=== PATIENT | male | born 1935 | race Caucasian/White ===

== ENCOUNTER 2021-07-02 19:32 | Inpatient (IN) | payer MEDICARE ==
[~2021-07-02] VITALS: Ht 172.7 cm; Wt 70.3 kg
[2021-07-02] MEDS ORDERED: LOSA25TA27 PO (20:17)
[2021-07-02] MEDS ORDERED: ASPI-1498 PO (20:18)
[2021-07-02] MEDS ORDERED: CARV6.252 PO (20:18)
[2021-07-02] MEDS ORDERED: LORAZEPAM 0.5 MG TABLET PO PRN (20:30)
[2021-07-02] MEDS ORDERED: ACETAMINOPHEN 325 MG TABLET PO PRN (20:30)
[2021-07-02] MEDS ORDERED: MAG HYDROX/AL HYDROX/SIMETH 30 ML UDC PO PRN (20:30)
[2021-07-02] MEDS ORDERED: MAGNESIUM HYDROXIDE 30 ML UDC PO PRN (20:30)
[2021-07-02 20:49] VITALS: BP 145/74
[2021-07-02] MEDS ORDERED: BLOOD SUGAR DIAGNOSTIC 1 EACH STRIP IN ONE (21:00)
[2021-07-02] MEDS ORDERED: Z GUARD REMEDY 2 OZ OINT TP PRN (21:00)
[2021-07-02 23:30] VITALS: BP 135/78
[2021-07-03 06:17] LABS: BASOPHILS # (AUTO) 0.1 K/uL (0.0-0.2); BASOPHILS % (AUTO) 1.1 % (0.0-2.0); EOSINOPHILS % (AUTO) 2.2 % (0.0-6.0); HEMATOCRIT 42 % (39-51); HEMOGLOBIN 13.7 g/dL (13.5-17.5); LYMPHOCYTES # (AUTO) 1.3 K/uL (0.8-4.8); MEAN CORPUSCULAR HGB CONC 33 g/dl (31.0-36.0); MEAN CORPUSCULAR VOLUME 88 fL (80-96); MONOCYTES # (AUTO) 0.9 K/uL (0.1-1.30); NEUTROPHILS # (AUTO) 5.5 K/uL (1.8-8.9); NEUTROPHILS % (AUTO) 69.7 % (43.0-81.0); PLATELET COUNT (AUTO) 224 K/uL (150-450); RED BLOOD CELL COUNT(AUTO) 4.81 MIL/uL (4.5-6.0); WHITE BLOOD COUNT (AUTO) 7.9 K/uL (4.3-11.0)
[2021-07-03 06:53] LABS: CALCIUM, SERUM 8.8 mg/dL (8.5-10.1); CREATININE 1.2 mg/dL (0.6-1.3); POTASSIUM 4.3 mmol/L (3.5-5.1)
[2021-07-03 08:00] VITALS: BP 124/69
[2021-07-03] MEDS: ASPIRIN EC 81 MG TABLET.DR PO SCH (08:31)
[2021-07-03] MEDS: CARVEDILOL 6.25 MG TABLET PO SCH ×2 (08:31→16:27)
[2021-07-03] MEDS: LOSARTAN POTASSIUM 25 MG TABLET PO SCH ×2 (08:32→16:27)
[2021-07-03 16:00] VITALS: BP 121/65
[2021-07-03 19:48] VITALS: BP_SYST 123; BP_SYST 145; BP_DIAS 82
[2021-07-03] MEDS: clonazePAM 0.5 MG TABLET PO SCH (22:16)
[2021-07-04 08:00] VITALS: BP 107/61
[2021-07-04] MEDS: LOSARTAN POTASSIUM 25 MG TABLET PO SCH ×2 (08:55→17:00)
[2021-07-04] MEDS: CARVEDILOL 6.25 MG TABLET PO SCH ×2 (08:55→17:00)
[2021-07-04] MEDS: ASPIRIN EC 81 MG TABLET.DR PO SCH (08:59)
[2021-07-04] MEDS: clonazePAM 0.5 MG TABLET PO SCH ×2 (09:20→21:48)
[2021-07-04 16:00] VITALS: BP 113/58
[2021-07-04 19:55] VITALS: BP 140/71
[2021-07-05 08:00] VITALS: BP 120/57
[2021-07-05] MEDS: CARVEDILOL 6.25 MG TABLET PO SCH ×2 (08:56→16:51)
[2021-07-05] MEDS: ASPIRIN EC 81 MG TABLET.DR PO SCH (08:56)
[2021-07-05] MEDS: LOSARTAN POTASSIUM 25 MG TABLET PO SCH ×3 (08:57→16:51)
[2021-07-05] MEDS: clonazePAM 0.5 MG TABLET PO SCH ×2 (10:00→21:17)
[2021-07-05 16:00] VITALS: BP 125/65
[2021-07-05 20:05] VITALS: BP 101/52
[2021-07-05] MEDS: TEMAZEPAM 7.5 MG CAPSULE PO PRN (21:50)
[2021-07-06 08:00] VITALS: BP 135/72
[2021-07-06] MEDS: ASPIRIN EC 81 MG TABLET.DR PO SCH (08:16)
[2021-07-06] MEDS: LOSARTAN POTASSIUM 25 MG TABLET PO SCH ×2 (08:17→17:10)
[2021-07-06] MEDS: clonazePAM 0.5 MG TABLET PO SCH ×3 (08:17→17:11)
[2021-07-06] MEDS: CARVEDILOL 6.25 MG TABLET PO SCH ×2 (08:18→17:09)
[2021-07-06 16:00] VITALS: BP 129/61
[2021-07-06 20:00] VITALS: BP 119/62
[2021-07-07 08:00] VITALS: BP 101/75
[2021-07-07] MEDS: clonazePAM 0.5 MG TABLET PO SCH ×3 (08:32→16:13)
[2021-07-07] MEDS: LOSARTAN POTASSIUM 25 MG TABLET PO SCH ×2 (08:33→16:12)
[2021-07-07] MEDS: CARVEDILOL 6.25 MG TABLET PO SCH ×2 (08:34→16:12)
[2021-07-07] MEDS: ASPIRIN EC 81 MG TABLET.DR PO SCH (08:43)
[2021-07-07 16:00] VITALS: BP 108/52
[2021-07-07 20:00] VITALS: BP 151/61
[2021-07-08 08:00] VITALS: BP_SYST 132; BP_DIAS 53; BP_DIAS 63
[2021-07-08] MEDS: clonazePAM 0.5 MG TABLET PO SCH ×4 (08:42→21:58)
[2021-07-08] MEDS: CARVEDILOL 6.25 MG TABLET PO SCH ×2 (08:42→16:28)
[2021-07-08] MEDS: ASPIRIN EC 81 MG TABLET.DR PO SCH (08:42)
[2021-07-08] MEDS: LOSARTAN POTASSIUM 25 MG TABLET PO SCH ×2 (08:43→16:31)
[2021-07-08 16:00] VITALS: BP 151/73
[2021-07-08 20:00] VITALS: BP 106/60
[2021-07-08 22:30] VITALS: BP 106/60
[2021-07-09] MEDS: TEMAZEPAM 7.5 MG CAPSULE PO PRN (02:41)
[2021-07-09 08:00] VITALS: BP 153/66
[2021-07-09] MEDS: CARVEDILOL 6.25 MG TABLET PO SCH ×2 (09:51→17:32)
[2021-07-09] MEDS: ASPIRIN EC 81 MG TABLET.DR PO SCH (09:51)
[2021-07-09] MEDS: clonazePAM 0.5 MG TABLET PO SCH ×2 (09:51→21:19)
[2021-07-09] MEDS: LOSARTAN POTASSIUM 25 MG TABLET PO SCH ×2 (09:52→17:32)
[2021-07-09 16:00] VITALS: BP 116/88
[2021-07-09 19:43] VITALS: BP 115/52
[2021-07-09 19:52] VITALS: BP 115/52
[2021-07-09] MEDS: CEPHALEXIN MONOHYDRATE 500 MG CAPSULE PO SCH (20:12)
[2021-07-10 08:00] VITALS: BP 142/62
[2021-07-10] MEDS: clonazePAM 0.5 MG TABLET PO SCH ×2 (08:50→21:39)
[2021-07-10] MEDS: LOSARTAN POTASSIUM 25 MG TABLET PO SCH ×2 (08:51→16:39)
[2021-07-10] MEDS: ASPIRIN EC 81 MG TABLET.DR PO SCH (08:51)
[2021-07-10] MEDS: CEPHALEXIN MONOHYDRATE 500 MG CAPSULE PO SCH ×2 (08:51→16:39)
[2021-07-10] MEDS: CARVEDILOL 6.25 MG TABLET PO SCH ×2 (08:51→16:39)
[2021-07-10 16:00] VITALS: BP 103/50
[2021-07-10] MEDS ORDERED: CEPHALEXIN MONOHYDRATE 500 MG CAPSULE PO SCH (20:00)
[2021-07-10 20:07] VITALS: BP 136/56
[2021-07-10] MEDS: TEMAZEPAM 7.5 MG CAPSULE PO PRN (21:39)
[2021-07-11 08:00] VITALS: BP 114/56
[2021-07-11] MEDS: CARVEDILOL 6.25 MG TABLET PO SCH ×2 (08:17→17:58)
[2021-07-11] MEDS: LOSARTAN POTASSIUM 25 MG TABLET PO SCH ×2 (08:17→17:59)
[2021-07-11] MEDS: CEPHALEXIN MONOHYDRATE 500 MG CAPSULE PO SCH ×2 (08:20→17:58)
[2021-07-11] MEDS: clonazePAM 0.5 MG TABLET PO SCH ×2 (08:20→21:00)
[2021-07-11] MEDS: ASPIRIN EC 81 MG TABLET.DR PO SCH (08:21)
[2021-07-11 16:00] VITALS: BP 151/66
[2021-07-11 20:56] VITALS: BP 115/54
[2021-07-12 08:00] VITALS: BP 133/56
[2021-07-12] MEDS: LOSARTAN POTASSIUM 25 MG TABLET PO SCH (09:00)
[2021-07-12] MEDS: CARVEDILOL 6.25 MG TABLET PO SCH (09:00)
[2021-07-12] MEDS: CEPHALEXIN MONOHYDRATE 500 MG CAPSULE PO SCH (09:28)
[2021-07-12] MEDS: ASPIRIN EC 81 MG TABLET.DR PO SCH (09:29)
[2021-07-12] MEDS: clonazePAM 0.5 MG TABLET PO SCH (09:35)
[2021-07-12 11:34] LABS: BASOPHILS # (AUTO) 0.1 K/uL (0.0-0.2); BASOPHILS % (AUTO) 0.6 % (0.0-2.0); EOSINOPHILS % (AUTO) 0.5 % (0.0-6.0); HEMATOCRIT 48 % (39-51); HEMOGLOBIN 15.2 g/dL (13.5-17.5); LYMPHOCYTES % (AUTO) 6.9 % (20.0-44.0); MEAN CORPUSCULAR HGB CONC 32 g/dl (31.0-36.0); MEAN CORPUSCULAR VOLUME 90 fL (80-96); MONOCYTES # (AUTO) 1.3 K/uL (0.1-1.30); MONOCYTES % (AUTO) 8.5 % (2.0-12.0); NEUTROPHILS # (AUTO) 12.4 K/uL (1.8-8.9); NEUTROPHILS % (AUTO) 83.5 % (43.0-81.0); PLATELET COUNT (AUTO) 236 K/uL (150-450); RED BLOOD CELL COUNT(AUTO) 5.28 MIL/uL (4.5-6.0); WHITE BLOOD COUNT (AUTO) 14.8 K/uL (4.3-11.0)
[2021-07-12 16:00] VITALS: BP 125/63
[2021-07-12 16:17] LABS: CARBON DIOXIDE 23 mmol/L (21-32); CHLORIDE 107 mmol/L (98-107); CREATININE 2.9 mg/dL (0.6-1.3); GLUCOSE 122 mg/dL (74-106); POTASSIUM 5.1 mmol/L (3.5-5.1); SODIUM SERUM 139 mmol/L (136-145); UREA NITROGEN, BLOOD 68 mg/dL (7-18)
[2021-07-12 16:23] LABS: ALANINE AMINOTRANSFERASE 21 U/L (12-78); ALBUMIN 2.9 g/dL (3.4-5.0); ALKALINE PHOSPHATASE 94 U/L (46-116); ASPARTATE AMINOTRANSFERASE 15 U/L (15-37); BILIRUBIN,TOTAL 0.2 mg/dL (0.2-1.0); MAGNESIUM 2.5 mg/dL (1.8-2.4); PHOSPHORUS 4.2 mg/dL (2.5-4.9); TOTAL PROTEIN, SERUM 6.2 g/dL (6.4-8.2)
[2021-07-12] MEDS ORDERED: CLON0.5T4 PO (17:28)
[2021-07-12] MEDS ORDERED: ALLA266C2 TP (17:28)
[2021-07-12] MEDS ORDERED: MAGN400O6 PO (17:28)
[2021-07-12] MEDS ORDERED: ASPI-1420 PO (17:28)
[2021-07-12] MEDS ORDERED: ACET-868 PO (17:28)
[2021-07-12] MEDS ORDERED: CEPH500C2 PO (17:28)
[2021-07-12] MEDS ORDERED: LORA-259 PO (17:28)
[2021-07-12] MEDS ORDERED: MAG30ORA PO (17:28)
[2021-07-12] MEDS ORDERED: TEMA7.5C12 PO (17:28)
[2021-07-13] MEDS ORDERED: BUPIVACAINE 0.25% 75 MG/30 ML VIAL ONE (15:44)
== END 2021-07-12 17:00 | disposition short-term general hospital (02) | DRG 880 ==
LOC: GPS 19:32
PROVIDERS: ADMIT Psychiatry & Neurology Psychiatry; ATTEND Registered Nurse
DX: F41.9 Anxiety disorder, unspecified (principal); F23 Brief psychotic disorder; D68.59 Other primary thrombophilia; L03.90 Cellulitis, unspecified; E78.5 Hyperlipidemia, unspecified; G31.84 Mild cognitive impairment of uncertain or unknown etiology; I10 Essential (primary) hypertension; I25.10 Atherosclerotic heart disease of native coronary artery without angina pectoris; I48.91 Unspecified atrial fibrillation; Z95.0 Presence of cardiac pacemaker; Z73.6 Limitation of activities due to disability; Z85.46 Personal history of malignant neoplasm of prostate; F32.A Depression, unspecified
CPT/HCPCS: 36415; 80048-TC; 80053-TC; 80061-TC; 82962-TC; 83735-TC; 84100-TC; 85025-TC; 87040-TC; 87081-TC; 97116-TC; 97530-TC; J3490

== ENCOUNTER 2021-07-12 17:17 | Inpatient (IN) | payer MEDICARE ==
[~2021-07-12] VITALS: Ht 170.2 cm; Wt 63.5 kg
[~2021-07-12 17:17] MED LIST: ASPI-1498 PO; CARV6.252 PO; LOSA25TA27 PO
[2021-07-12] MEDS ORDERED: MAGN400O6 PO (17:28)
[2021-07-12] MEDS ORDERED: ACET-868 PO (17:28)
[2021-07-12] MEDS ORDERED: ASPI-1420 PO (17:28)
[2021-07-12] MEDS ORDERED: CEPH500C2 PO (17:28)
[2021-07-12] MEDS ORDERED: MAG30ORA PO (17:28)
[2021-07-12] MEDS ORDERED: ALLA266C2 TP (17:28)
[2021-07-12] MEDS ORDERED: CLON0.5T4 PO (17:28)
[2021-07-12] MEDS ORDERED: TEMA7.5C12 PO (17:28)
[2021-07-12] MEDS ORDERED: LORA-259 PO (17:28)
--- NOTE | 2021-07-12 17:30 | NUR ---
RN NOTE- PT BROUGHT TO UNIT FOR ADMISSION FROM [facility] DX- SEPSIS. VS- BP- 134/74, HR- 74, RR- 20, T-98.0. O2 SATS 98% RA. PT MADE COMFORTABLE. SIDE RAILS UP, BED LOCKED, LYNNE LIGHT IN REACH. WILL COMPLETE ADMISSION TIMELY POSSIBLE. REFER REST TO ONCOMING NOC SHIFT
--- NOTE | 2021-07-12 18:53 | NUR ---
PATENT LEATHER SORTER NOTE- 86 Y/O MALE PT ADMITTED TO [facility] FOR 5150 GD. PT UNABLE TO CARE FOR SELF. CALLING AMBULANCE ANXIETY DEPRESSION.PT ON [facility] BECAME SEPTIC AND WAS TRANSFERRED TO . ON ARRIVAL AND FACE TO FACE ASSESSMENT, PT WITHDRAWN, CONFUSED AND LETHARGIC. PMHX- COGNITIVE IMPAIRMENT, CAD, AFIB, HLD, PSYCHOSIS, HTN AND HX PROSTATE CA. SKIN INTACT, VS STABLE, ORDERS PENDING. BED LOCKED, SIDE RAILS UP, CALL LIGHT IN REACH/ WILL CALL MD TO OBTAIN ORDER AND ENDORSE TO NOC SHIFT FOR COMPLETION.
[2021-07-12 20:00] VITALS: BP 108/54
--- NOTE | 2021-07-12 20:00 | NUR ---
MS RN OPENING NOTES PATIENT LAYING IN BED, ALERT/ORIENTED X 1, PT CONFUSED, ORIENTED PATIENT TO TIME AND PLACE. PATIENT STABLE ON RA, NO S/S OF DISTRESS OR SOB NOTED, BREATHING EVEN AND UNLABORED. PATIENT HAS NO IV ACCESS. SAFETY MEASURES IN PLACE: CALL LIGHT WITHIN REACH, SIDE RAILS UP X 3, BED LOCKED IN LOW POSITION, BED ALARM ON. WILL CONTINUE TO MONITOR PATIENT. MED RECON AND ORDERS PENDING
--- NOTE | 2021-07-12 20:05 | NUR ---
MS RN NOTE PATIENT HAS TEMP OF 99.5 DEGREES. COOLING MEASURES IN PLACE: REMOVED BLANKETS AND PLACED COLD CLOTHS ON BODY. WILL CONTINUE TO MONITOR PATIENT
--- NOTE | 2021-07-12 20:15 | NUR ---
MS RN NOTE SPOKE TO DR. ARROYO REGARDING MED RECON AND PATIENT ORDERS, SAID TO WAIT FOR ADMITTING TO INPUT ORDERS AND DO MED RECON
--- NOTE | 2021-07-12 22:03 | NUR ---
MS RN NOTES REASSESSED PATIENT'S TEMPERATURE NOW 98.4 DEGREES. WILL CONTINUE TO MONITOR
[2021-07-13] MEDS ORDERED: MAGNESIUM HYDROXIDE 30 ML UDC PO PRN ×2 (01:00)
[2021-07-13] MEDS ORDERED: MAG HYDROX/AL HYDROX/SIMETH 30 ML UDC PO PRN ×2 (01:00)
[2021-07-13] MEDS ORDERED: Z GUARD REMEDY 2 OZ OINT TP PRN ×2 (01:00)
[2021-07-13] MEDS ORDERED: ACETAMINOPHEN 325 MG TABLET PO PRN ×2 (01:00)
[2021-07-13] MEDS ORDERED: ONDANSETRON HCL/PF 4 MG/2 ML VIAL IVP PRN (01:00)
[2021-07-13] MEDS ORDERED: TEMAZEPAM 7.5 MG CAPSULE PO PRN (01:00)
[2021-07-13] MEDS: IV NS 0.9% 1,000 ML IV SCH ×3 (01:20→21:42)
[2021-07-13] MEDS ORDERED: MEROPENEM 500 MG VIAL IV ONE (02:15)
[2021-07-13] MEDS ORDERED: VANCOMYCIN 1 GM VIAL ONE (02:15)
[2021-07-13] MEDS ORDERED: VANCOMYCIN 1 GM in IV D5W 250ml IV ONE (02:30)
[2021-07-13] MEDS ORDERED: MEROPENEM 500 MG in IV NS 0.9% 50 ML IV ONE (05:00)
[2021-07-13 07:07] LABS: BASOPHILS # (AUTO) 0.1 K/uL (0.0-0.2); BASOPHILS % (AUTO) 0.9 % (0.0-2.0); EOSINOPHILS % (AUTO) 2.4 % (0.0-6.0); HEMATOCRIT 42 % (39-51); HEMOGLOBIN 13.6 g/dL (13.5-17.5); LYMPHOCYTES # (AUTO) 1.1 K/uL (0.8-4.8); LYMPHOCYTES % (AUTO) 11.1 % (20.0-44.0); MEAN CORPUSCULAR HGB CONC 33 g/dl (31.0-36.0); MEAN CORPUSCULAR VOLUME 87 fL (80-96); MONOCYTES # (AUTO) 1.1 K/uL (0.1-1.30); MONOCYTES % (AUTO) 11.1 % (2.0-12.0); NEUTROPHILS # (AUTO) 7.6 K/uL (1.8-8.9); NEUTROPHILS % (AUTO) 74.5 % (43.0-81.0); PLATELET COUNT (AUTO) 257 K/uL (150-450); RED BLOOD CELL COUNT(AUTO) 4.76 MIL/uL (4.5-6.0); WHITE BLOOD COUNT (AUTO) 10.2 K/uL (4.3-11.0)
[2021-07-13 07:20] LABS: CALCIUM, SERUM 8.3 mg/dL (8.5-10.1); CREATININE 1.1 mg/dL (0.6-1.3); MAGNESIUM 2.6 mg/dL (1.8-2.4); PHOSPHORUS 3.3 mg/dL (2.5-4.9); POTASSIUM 4.1 mmol/L (3.5-5.1)
--- NOTE | 2021-07-13 07:32 | NUR ---
WOUND CARE CONSULT: PT PRESENTS WITH RAISED RED INDURATED AREA TO LEFT UPPER BACK, PRESENT ON ADMISSION. DEFER TO PMD FOR POSSIBLE SURGICAL CONSULT. PT IS ABLE TO TURN AND REPOSITIONING BED AND IS CONTINENT AT THIS TIME. RECOMMENDATIONS MADE FOR SKIN PROTECTION. MD IN AGREEMENT WITH PLAN OF CARE. Addendum: 07/13/21 at 0747 by SULY TRENT WNDNU ABOVE DISCUSSED WITH ALEXIA MATHEW DNP.
--- NOTE | 2021-07-13 07:35 | NUR ---
MS RN CLOSING NOTE PATIENT SLEEPING IN BED, PT APPEARS COMFORTABLE AND NOT IN ANY DISTRESS. NO SIGNIFICANT CHANGES THROUGHOUT SHIFT. PATIENT STABLE ON RA, NO S/S OF DISTRESS OR SOB NOTED, BREATHING EVEN AND UNLABORED. RIGHT WRIST IV ACCESS RUNNING NS @ 100 ML/HR. MEDICATIONS GIVEN ORDERED. PT NEEDS MET THROUGHOUT SHIFT. SAFETY MEASURES IN PLACE: CALL LIGHT WITHIN REACH, SIDE RAILS UP X 3, BED LOCKED IN LOW POSITION, BED ALARM ON. ENDORSED TO DAY SHIFT NURSE FOR CONTINUITY OF CARE
--- NOTE | 2021-07-13 07:46 | NUR ---
MS RN OPENING NOTE Patient in bed asleep, A/O x 1. Stable on room air, no SOB or s/s of distress noted. IV access on right wrist #20G running NS at 100ml/hr. Safety precautions in place: bed in low, locked position, siderails ups x 2, call light within reach. Will continue to monitor.
[2021-07-13 08:00] VITALS: BP 116/44
[2021-07-13] MEDS: ASPIRIN EC 81 MG TABLET.DR PO SCH (08:57)
[2021-07-13] MEDS: CARVEDILOL 6.25 MG TABLET PO SCH ×2 (08:58→21:00)
[2021-07-13] MEDS: LOSARTAN POTASSIUM 25 MG TABLET PO SCH ×2 (08:59→21:00)
[2021-07-13] MEDS: clonazePAM 0.5 MG TABLET PO SCH ×2 (08:59→21:42)
--- NOTE | 2021-07-13 09:31 | NUR ---
RN NOTE RECEIVED ORDER FROM ALEXIA MATHEW TO CHANGE HIS ORDER FROM CT CHEST WITHOUT CONTRAST TO WITH CONTRAST. RECEIVED ORDER AND CARRIED OUT.
[2021-07-13] MEDS ORDERED: IV NS 0.9% 250 ML IV ONE (09:52)
[2021-07-13] MEDS ORDERED: IOHEXOL-300 100 ML VIAL IV ONE (09:52)
--- NOTE | 2021-07-13 11:44 | NUR ---
RN NOTE PATIENT IS FOR INCISION AND DRAINAGE ABSCESS ON LEFT UPPER BACK. UNABLE TO REACH THE FAMILY. CONSENT WAS SIGNED BY DR VALENCIA. PLACED PATIENT ON NPO. Addendum: 07/13/21 at 1147 by EBER ADEN RN PER DR VALENCIA. BLOOD TRANSFUSION CONSENT IS NOT NEEDED.
[2021-07-13] MEDS ORDERED: MEROPENEM 500 MG in IV NS 0.9% 50 ML IV SCH (13:00)
[2021-07-13] MEDS ORDERED: ANESTHESIA TRAY IN PYXIS 1 EA TRAY MC ONE (13:09)
--- NOTE | 2021-07-13 15:30 | NUR ---
Patient was brought to OR via bed.
--- NOTE | 2021-07-13 17:06 | NUR ---
RN NOTE PATIENT WAS TRANSFERRED BACK TO ROOM 313-1. VS BP 135/64 NH 60 RR 18 T 97.[address] VALENCIA ORDERED TO PUT THE PT BACK ON REGULAR DIET. CBC AND BMP IN THE MORNING. TO CHANGE THE DRESSING WITH SALINE AND KERLIX PACKING EVERY 12 HOURS. RECEIVED ORDERS AND CARRIED OUT. Addendum: 07/13/21 at 1830 by EBER ADEN RN CORRECTION: CARDIAC DIET
[2021-07-13] MEDS: MEROPENEM 500 MG in IV NS 0.9% 100 ML IV SCH (17:39)
--- NOTE | 2021-07-13 18:20 | NUR ---
MS RN CLOSING NOTE Patient in bed, resting comfortably. A/O x 1. Stable on room air, no SOB or s/s of distress noted. No complains of pain or discomfort at this time. IV access on right wrist NS running at 100ml/hr, intact and patent. Dressing on left upper back is clean, dry, and intact. Due meds given. Safety precautions maintained: bed in low, locked position; siderails up x 2; call light within reach. Will endorse to car shifter nurse for ANA LUISA.
--- NOTE | 2021-07-13 19:40 | NUR ---
MS RN OPENING NOTES PATIENT SITTING ON SIDE OF BED DRINKING TEA. PT ALERT/ORIENTED X 1, CONFUSED. PATIENT STABLE ON RA, NO S/S OF DISTRESS OR SOB NOTED, BREATHING EVEN AND UNLABORED. RIGHT WRIST IV ACCESS RUNNING NS @ 100 ML/HR. PATIENT DENIES PAIN OR DISCOMFORT AT THIS TIME. DRESSING ON BACK CLEAN, DRY AND INTACT. SAFETY MEASURES IN PLACE: CALL LIGHT WITHIN REACH, SIDE RAILS UP X 3, BED LOCKED IN LOW POSITION, BED ALARM ON. WILL CONTINUE TO MONITOR PATIENT
[2021-07-13 20:00] VITALS: BP 132/67
[2021-07-13] MEDS: VANCOMYCIN 1 GM in IV D5W 250 ML IV SCH (20:41)
[2021-07-14] MEDS: LORAZEPAM 1 MG TABLET PO PRN ×2 (02:41→17:39)
[2021-07-14] MEDS: MEROPENEM 500 MG in IV NS 0.9% 100 ML IV SCH ×2 (05:20→16:19)
[2021-07-14 06:37] LABS: BASOPHILS % (AUTO) 0.1 % (0.0-2.0); HEMATOCRIT 43 % (39-51); HEMOGLOBIN 13.9 g/dL (13.5-17.5); LYMPHOCYTES # (AUTO) 0.6 K/uL (0.8-4.8); LYMPHOCYTES % (AUTO) 6.1 % (20.0-44.0); MEAN CORPUSCULAR HGB CONC 33 g/dl (31.0-36.0); MEAN CORPUSCULAR VOLUME 88 fL (80-96); MONOCYTES # (AUTO) 0.3 K/uL (0.1-1.30); MONOCYTES % (AUTO) 3.3 % (2.0-12.0); NEUTROPHILS # (AUTO) 8.6 K/uL (1.8-8.9); NEUTROPHILS % (AUTO) 90.5 % (43.0-81.0); PLATELET COUNT (AUTO) 247 K/uL (150-450); RED BLOOD CELL COUNT(AUTO) 4.84 MIL/uL (4.5-6.0); WHITE BLOOD COUNT (AUTO) 9.5 K/uL (4.3-11.0)
[2021-07-14 06:49] LABS: CALCIUM, SERUM 8.2 mg/dL (8.5-10.1); CREATININE 1.2 mg/dL (0.6-1.3); POTASSIUM 4.6 mmol/L (3.5-5.1)
--- NOTE | 2021-07-14 07:00 | NUR ---
MS RN CLOSING NOTE PATIENT AWAKE IN BED, ALERT/ORIENTED X 1, VERY CONFUSED DURING SHIFT. PATIENT DID NOT SLEEP ALL NIGHT, TRYING TO GET OUT OF BED AND FIXATED ON CALLING HIS BROTHER, FREQUENTLY REORIENTED PATIENT. PATIENT STABLE ON RA, NO S/S OF DISTRESS OR SOB NOTED, BREATHING EVEN AND UNLABORED. RIGHT WRIST IV ACCESS RUNNING MERREM @ 33.33 ML/HR. MEDICATIONS GIVEN ORDERED. PT NEEDS MET THROUGHOUT SHIFT. WOUND CARE DONE. SAFETY MEASURES IN PLACE: CALL LIGHT WITHIN REACH, SIDE RAILS UP X 3, BED LOCKED IN LOW POSITION, BED ALARM ON. WILL ENDORSE TO DAY SHIFT NURSE FOR CONTINUITY OF CARE
[2021-07-14] MEDS: IV NS 0.9% 1,000 ML IV SCH ×2 (07:07→16:19)
--- NOTE | 2021-07-14 07:47 | NUR ---
MS RN OPENING NOTE Patient in bed, asleep. A/O x 1. On room air, no SOB or s/s of distress noted. IV access on right wrist #20G NS running at 100ml/hr, intact and patent. Dressing on left upper back is clean, dry, and intact. Safety precautions in place: bed in low, locked position; siderails up x 2; call light within reach. Will continue to monitor.
[2021-07-14 08:00] VITALS: BP 120/55
[2021-07-14] MEDS: ASPIRIN EC 81 MG TABLET.DR PO SCH (08:50)
[2021-07-14] MEDS: CARVEDILOL 6.25 MG TABLET PO SCH ×2 (08:51→21:00)
[2021-07-14] MEDS: LOSARTAN POTASSIUM 25 MG TABLET PO SCH ×2 (08:51→21:00)
[2021-07-14] MEDS: clonazePAM 0.5 MG TABLET PO SCH ×2 (08:52→21:00)
--- NOTE | 2021-07-14 09:37 | NUR ---
SW Transfer Note: Patient will be transferred to medical floor due to Sepsis. Dr. Sigala will discontinue the 5250 hold. Patient will return back home located at [address] [place] [address]; ([phone]). Patients brother Carlos ([phone]) is involved in patients care. Brother set up caregiving services through [facility] through [facility] ([phone]). Patient will continue home health services by [facility] (ph: [phone]; fax: [phone]) for medication management, physical therapy, and nursing follow up and family is aware of this.
[2021-07-14] MEDS: VANCOMYCIN 1 GM in IV D5W 250 ML IV SCH (13:33)
[2021-07-14] MEDS ORDERED: VANCOMYCIN 0.75 GM in IV D5W 250 ML IV SCH (14:00)
[2021-07-14 16:00] VITALS: BP 152/76
--- NOTE | 2021-07-14 17:56 | NUR ---
RN NOTE PATIENT WAS CONFUSED, AGITATED, SHOWING UNACCEPTABLE BEHAVIOR SUCH TELLING MALE STAFF TO SHOW THEIR DICKS AND ASKING WOMEN STAFF TO GET OUT OF THE ROOM. PATIENT WAS REFUSING ATIVAN, EXPLAINED RISKS AND BENEFITS OF SUCH YET PT STILL REFUSED. HE REFUSED TO HAVE DRESSING CHANGE WELL. HE EVEN PULLED OUT THE IV CONNECTION. PATIENT WAS TRANSFERRED TO ROOM 327-2 AND WAS GIVEN A SITTER FOR CLOSED MONITORING. CHARGE NURSE ASHLEY SANDERS WAS MADE AWARE.
--- NOTE | 2021-07-14 18:21 | NUR ---
MS RN CLOSING NOTE Patient in bed resting, more calm now. A/O x 1. Stable on room air, no SOB or s/s of distress noted. IV access on left wrist #22G, intact and patent, with NS running at 100ml/hr. With sitter at bedside. Safety precautions maintained: bed in low, locked position; siderails up x 2; call light within reach. Will endorse to director life nurse for ANA LUISA.
--- NOTE | 2021-07-14 19:45 | NUR ---
MS RN NOTES RECEIVED ON BED A/O X 1,CONFUSED,S/P INCISION AND DRAINAGE OF LEFT UPPER BACK ABSCESS.DRESSING INTACT AND DRY.SITTER AT BEDSIDE FOR PATIENT SAFETY.IVF NS AT 100ML/HR RATE,INFUSING ON LEFT WRIST SALINE LOCK VIA IV PUMP.WILL CONTINUE TO MONITOR STATUS.
[2021-07-14 20:00] VITALS: BP 131/66
[2021-07-15] MEDS: IV NS 0.9% 1,000 ML IV SCH ×3 (03:11→22:49)
[2021-07-15] MEDS: MEROPENEM 500 MG in IV NS 0.9% 100 ML IV SCH ×2 (05:15→16:37)
[2021-07-15 07:54] LABS: CREATININE 1.1 mg/dL (0.6-1.3); POTASSIUM 4.4 mmol/L (3.5-5.1)
[2021-07-15 08:00] VITALS: BP 127/68
--- NOTE | 2021-07-15 08:00 | NUR ---
RN OPENING NOTE PT RESTING IN BED ASLEEP. AROUSES TO NAME. A/O X1 AND BOLIVIAN SPEAKING. NO S/S OF PAIN OR NAUSEA. ON RA WITH NO SOB OR RESPIRATORY DISTRESS PRESENT. NO CARDIAC MONITORING. NO EDEMA PRESENT. ON BEDREST WITH DIAPER PRESENT. IV PRESENT ON L WRIST 22G AND FLUSHES WELL. LABS AND ORDERS REVIEWED. SAFETY MEASURES IN PLACE. SIDE RAILS RAISED. BED LOWERED. CALL LIGHT WITHIN REACH. WILL CONTINUE TO MONITOR.
[2021-07-15] MEDS: VANCOMYCIN 1 GM in IV D5W 250 ML IV SCH (08:53)
[2021-07-15] MEDS: CARVEDILOL 6.25 MG TABLET PO SCH ×2 (09:00→21:15)
[2021-07-15] MEDS: LOSARTAN POTASSIUM 25 MG TABLET PO SCH ×2 (09:00→21:15)
[2021-07-15] MEDS: clonazePAM 0.5 MG TABLET PO SCH ×2 (09:12→21:15)
[2021-07-15] MEDS: ASPIRIN EC 81 MG TABLET.DR PO SCH (09:12)
[2021-07-15 16:00] VITALS: BP 127/68
--- NOTE | 2021-07-15 18:21 | NUR ---
RN CLOSING NOTE PT RESTING IN BED ASLEEP. AROUSES TO NAME. A/O X1 AND MAORI SPEAKING. NO S/S OF PAIN OR NAUSEA. ON RA WITH NO SOB OR RESPIRATORY DISTRESS PRESENT. NO CARDIAC MONITORING. NO EDEMA PRESENT. ON BEDREST WITH DIAPER PRESENT. IV PRESENT ON L WRIST 22G AND FLUSHES WELL. LABS AND ORDERS REVIEWED. SAFETY MEASURES IN PLACE. SIDE RAILS RAISED. BED LOWERED. CALL LIGHT WITHIN REACH. WILL GIVE REPORT TO NIGHT NURSE FOR ANA LUISA.
--- NOTE | 2021-07-15 19:36 | NUR ---
MS RN NOTES PT RESTING IN BED ASLEEP. AROUSES TO NAME. A/O X1 AND CHADIAN SPEAKING. NO S/S OF PAIN OR NAUSEA. ON RA WITH NO SOB OR RESPIRATORY DISTRESS PRESENT. NO EDEMA PRESENT. ON BEDREST WITH DIAPER PRESENT. IV PRESENT ON L WRIST 22G AND FLUSHES WELL. SAFETY MEASURES IN PLACE. SIDE RAILS RAISED. BED LOWERED. CALL LIGHT WITHIN REACH. SITTER AT BEDSIDE. WILL CONTINUE TO MONITOR.
[2021-07-15 21:42] VITALS: BP 151/80
[2021-07-16] MEDS: MEROPENEM 500 MG in IV NS 0.9% 100 ML IV SCH ×2 (04:00→16:06)
--- NOTE | 2021-07-16 06:57 | NUR ---
MS RN NOTES PT RESTING IN BED ASLEEP. AROUSES TO NAME. A/O X1 AND [place]THER[place] IRISH SPEAKING. NO S/S OF PAIN OR NAUSEA. ON RA WITH NO SOB OR RESPIRATORY DISTRESS PRESENT. NO EDEMA PRESENT. ON BEDREST WITH DIAPER PRESENT. IV PRESENT ON L WRIST 22G AND FLUSHES WELL. SAFETY MEASURES IN PLACE. SIDE RAILS RAISED. BED LOWERED. CALL LIGHT WITHIN REACH. SITTER AT BEDSIDE. WILL ENDORSE CARE TO DAY SHIFT NURSE.
[2021-07-16 07:16] LABS: CALCIUM, SERUM 8.2 mg/dL (8.5-10.1); CREATININE 1.1 mg/dL (0.6-1.3); POTASSIUM 3.8 mmol/L (3.5-5.1)
[2021-07-16 08:00] VITALS: BP 162/87
[2021-07-16] MEDS: VANCOMYCIN 1 GM in IV D5W 250 ML IV SCH (09:16)
[2021-07-16] MEDS: ASPIRIN EC 81 MG TABLET.DR PO SCH (09:39)
[2021-07-16] MEDS: LOSARTAN POTASSIUM 25 MG TABLET PO SCH ×2 (09:40→21:53)
[2021-07-16] MEDS: CARVEDILOL 6.25 MG TABLET PO SCH ×2 (09:40→21:53)
[2021-07-16] MEDS: clonazePAM 0.5 MG TABLET PO SCH ×2 (09:40→21:54)
[2021-07-16] MEDS: IV NS 0.9% 1,000 ML IV SCH ×2 (11:00→22:09)
--- NOTE | 2021-07-16 14:32 | NUR ---
IV infiltrated on left wrist and IV transferred to right hand with gauge #22. With good blood return and pt. tolerated well.
--- NOTE | 2021-07-16 15:58 | NUR ---
Pt. is irritable and took off the DVT pump, was explained on the importance and refused to put back.
[2021-07-16 16:00] VITALS: BP 158/81
--- NOTE | 2021-07-16 19:31 | NUR ---
MS RN OPENING NOTES: RECEIVED PATIENT SLEEP IN BED COMFORTABLY, BED IN LOW POSITION, CALL LIGHTS WITHIN REACH, NO COMPLAIN OF PAIN AND DISCOMFORT AT THIS TIME, PATIENT IS A/OX1 ON URINAL , ON CARDIAC DIET , WITH IV LINE AT RT HAND #22 WITH NSS@100ML/HR INFUSING WELL, PATIENT KEPT CLEAN AND DRY, ALL NEEDS MET, WILL CONTINUE TO MONITOR.
[2021-07-16 20:00] VITALS: BP 138/72
[2021-07-17] MEDS: MEROPENEM 500 MG in IV NS 0.9% 100 ML IV SCH (05:26)
[2021-07-17] MEDS: IV NS 0.9% 1,000 ML IV SCH ×2 (05:35→14:40)
--- NOTE | 2021-07-17 07:23 | NUR ---
RN CLOSING NOTES: PATIENT AWAKE IN BED, NO COMPLAIN OF PAIN AND DISCOMFORT AT THIS TIME, BED IN LOW POSITION, CALL LIGHTS WITHIN REACH, PATIENT IS A/OX1 CONFUSED, FALL RISK, ON FREQUENT ROUNDS, WITH ONGOING IV FLUID OF NSS AT 100 ML INFUSING WELL AT RAC, PATIENT KEPT CLEAN AND DRY, ALL NEEDS MET, ENDORSE TO INCOMING SHIFT.
--- NOTE | 2021-07-17 07:47 | NUR ---
RN OPENING NOTE RECEIVED PATIENT AWAKE, A/O X 1. NO S/SX OF DISTRESS NOTED. PATIENT ON ROOM AIR, TOLERATING WELL. BREATHING IS EVEN AND UNLABORED; NO SOB NOTED. NO S/SX OF DISTRESS NOTED. IV ACCESS RHAND#22 PATENT AND INTACT WITH NS RUNNING AT 100MLS/HR. SAFETY PRECAUTIONS IN PLACE; BED IN LOW POSITION AND LOCKED, SIDE RAILS UP X2, CALL LIGHT WITHIN REACH. WILL CONTINUE TO MONITOR PATIENT.
[2021-07-17 08:00] VITALS: BP 143/70
[2021-07-17 08:14] LABS: CALCIUM, SERUM 8.2 mg/dL (8.5-10.1); CREATININE 1.2 mg/dL (0.6-1.3); POTASSIUM 3.9 mmol/L (3.5-5.1)
[2021-07-17] MEDS: clonazePAM 0.5 MG TABLET PO SCH ×2 (08:18→20:55)
[2021-07-17] MEDS: ASPIRIN EC 81 MG TABLET.DR PO SCH (08:18)
[2021-07-17] MEDS: CARVEDILOL 6.25 MG TABLET PO SCH ×2 (08:19→20:55)
[2021-07-17] MEDS: LOSARTAN POTASSIUM 25 MG TABLET PO SCH ×2 (08:19→20:55)
[2021-07-17] MEDS: VANCOMYCIN 1 GM in IV D5W 250 ML IV SCH (08:37)
[2021-07-17] MEDS ORDERED: SULFAMETH/TRIMETH 800/160 MG 1 UDTAB TABLET PO SCH (13:00)
[2021-07-17] MEDS: LORAZEPAM 1 MG TABLET PO PRN (15:06)
[2021-07-17] MEDS ORDERED: LORAZEPAM INJ 2 MG/ML VIAL IV PRN (15:30)
[2021-07-17 16:00] VITALS: BP 142/75
--- NOTE | 2021-07-17 16:00 | NUR ---
MS RN NOTE PT CONFUSED, ANXIOUS AND ATTEMPTING TO GET UP FROM BED AND YELLING "HELP, HELP." PT REFUSED PO ATIVAN 0.5MG. INFORMED DR. ALEXIA MATHEW AND CHARGE NURSEHERBIE WITH NEW ORDER FOR ATIVAN 0.5MG IV Q6H PRN ANXIETY. ORDERS READ BACK AND CARRIED OUT.
--- NOTE | 2021-07-17 18:51 | NUR ---
RN CLOSING NOTE PATIENT AWAKE, A/O X 1. NO S/SX OF DISTRESS NOTED. PATIENT ON ROOM AIR, TOLERATING WELL. BREATHING IS EVEN AND UNLABORED; NO SOB NOTED. IV ACCESS RHAND#22 PATENT AND INTACT WITH NS RUNNING AT 100MLS/HR. ALL NEEDS MET THROUGHOUT SHIFT. SAFETY PRECAUTIONS MAINTAINED. CALL LIGHT IS WITHIN REACH. WILL ENDORSE CONTINUITY OF CARE TO ONCOMING SHIFT.
--- NOTE | 2021-07-17 19:36 | NUR ---
MS RN OPENING NOTES: RECEIVED PATIENT SLEEP IN BED COMFORTABLY, BED IN LOW POSITION, CALL LIGHTS WITHIN REACH, NO COMPLAIN OF PAIN AND DISCOMFORT AT TIS TIME, PATIENT , PATIENT IS A/O X1 WITH EPISODE OF CONFUSION, WITH IV LINE AT R HAND #22 WITH ONGOING NSS@100ML PER HOUR INFUSING WELL, PATIENT WAS MONITORED DUE TO FALL RISK, KEPT CLEAN AND DRY, ALL NEED MET, WILL CONTINUE TO MONITOR.
[2021-07-17 20:00] VITALS: BP 159/92
[2021-07-17] MEDS ORDERED: MEROPENEM 500 MG in IV NS 0.9% 50 ML IV ONE (20:00)
[2021-07-17] MEDS ORDERED: MEROPENEM 500 MG VIAL IV ONE (20:36)
--- NOTE | 2021-07-17 20:45 | NUR ---
RN NOTES: MERREM 500MG IN 50ML NSS ONE TIME GIVEN , MEDICATION C/O CN
--- NOTE | 2021-07-18 01:00 | NUR ---
RN NOTES: PSYCH DOCTOR HARSH CAME AND EVALUATED THE PATIENT.
[2021-07-18] MEDS: IV NS 0.9% 1,000 ML IV SCH ×2 (03:58→11:13)
--- NOTE | 2021-07-18 06:53 | NUR ---
RN CLOSING NOTES PATIENT SLEEP IN BED COMFORTABLY, BED IN LOW POSITION, CALL LIGHTS WITHIN REACH, NO COMPLAIN OF PAIN AND DISCOMFORT AT THIS TIME, PATIENT IS A/OX1 AMBULATORY ABLE TO WALK WITH CANE AND WITH SUPERVISION, WITH ONGOING IV INFUSION OF 0.9 NSS @100M/HR INFUSING WELL, IV LINE AT RFA #22 , PATIENT ON RA SATURATING WELL, PATIENT KEPT CLEAN AND DRY, REMIND PATIENT TO USE THE CALL LIGHTS WHEN NEEDED ASSISTANCE, ENDORSE TO INCOMING SHIFT.
--- NOTE | 2021-07-18 07:21 | NUR ---
MS RN OPENING NOTE PATIENT IN BED, ASLEEP. A/O X 1. STABLE ON ROOM AIR, NO SOB OR S/S OF DISTRESS NOTED. IV ACCESS ON RIGHT HAND #22 RUNNING NS AT 100 ML/HR. DRESSING ON LEFT UPPER BACK IS CLEAN, DRY, AND INTACT. SAFETY PRECAUTIONS IN PLACE: BED IN LOW, LOCKED POSITION; SIDERAILS UP X 2; CALL LIGHT WITHIN REACH. WILL CONTINUE TO MONITOR.
[2021-07-18 08:00] VITALS: BP 129/66
[2021-07-18] MEDS ORDERED: MEROPENEM 500 MG in IV NS 0.9% 100 ML IV SCH (08:00)
[2021-07-18] MEDS ORDERED: MEROPENEM 500 MG in IV NS 0.9% 50 ML IV SCH (08:00)
[2021-07-18] MEDS: clonazePAM 0.5 MG TABLET PO SCH (08:03)
[2021-07-18] MEDS: ASPIRIN EC 81 MG TABLET.DR PO SCH (08:04)
[2021-07-18 08:06] VITALS: BP 129/66
[2021-07-18] MEDS: LOSARTAN POTASSIUM 25 MG TABLET PO SCH (08:06)
[2021-07-18] MEDS: CARVEDILOL 6.25 MG TABLET PO SCH (08:06)
[2021-07-18] MEDS ORDERED: IV NS 0.9% 1,000 ML IV PRN (12:00)
[2021-07-18 13:09] LABS: CREATININE 1.1 mg/dL (0.6-1.3); POTASSIUM 4.2 mmol/L (3.5-5.1)
--- NOTE | 2021-07-18 13:30 | NUR ---
RN NOTE REPORT GIVEN TO ASHLEY ENGLISH BOILING HOUSE OILER AT [facility].
--- NOTE | 2021-07-18 14:38 | NUR ---
DISCHARGE NOTE RECEIVED ORDER FOR DISCHARGE. PATIENT IS A/O X 1. PATIENT IS STABLE ON ROOM AIR, NO SOB OR S/S OF DISTRESS NOTED. DOES NOT SHOW ANY SIGNS OF PAIN OR DISCOMFORT. BELONGINGS ACCOUNTED FOR. DISCHARGE INSTRUCTIONS GIVEN BOTH VERBALLY AND IN WRITTEN FORM TO RN SALES SERVICE SUPERVISOR AT [facility]. PATIENT HAS LEFT UPPER BACK WOUND, REFUSED TO HAVE PHOTO TAKEN BEFORE DISCHARGE, CHARGE NURSE AWARE. IV ACCESS REMOVED, CATHETER TIP INTACT, PRESSURE DRESSING APPLIED; NO SIGNS OF BLEEDING NOTED. PATIENT LEFT IN STABLE CONDITION WITH 2 MECHANIC WELDER PRESENT VIA AMBULANCE.
[2021-07-26] MEDS ORDERED: HYDR-4076 PO (10:08)
[2021-07-26] MEDS ORDERED: ISOS20TA8 PO (10:08)
[2021-07-26] MEDS ORDERED: Quetiapine Fumarate PO ×2 (10:08)
[2021-07-26] MEDS ORDERED: MIRT-121 PO (10:08)
== END 2021-07-18 14:30 | DRG 602 ==
LOC: MED 17:17
PROVIDERS: ADMIT Nurse Practitioner Acute Care; ATTEND Nurse Practitioner Acute Care
PROC: 0H96XZZ Drainage of Back Skin, External Approach (ICD-10-PCS; principal; 2021-07-13)
DX: L02.212 Cutaneous abscess of back [any part, except buttock and flank] (principal); N17.0 Acute kidney failure with tubular necrosis; D68.59 Other primary thrombophilia; I25.10 Atherosclerotic heart disease of native coronary artery without angina pectoris; I10 Essential (primary) hypertension; F41.9 Anxiety disorder, unspecified; Z20.822 Contact with and (suspected) exposure to COVID-19; F29 Unspecified psychosis not due to a substance or known physiological condition; F32.A Depression, unspecified; E78.5 Hyperlipidemia, unspecified; I48.91 Unspecified atrial fibrillation; Z85.46 Personal history of malignant neoplasm of prostate; Z95.0 Presence of cardiac pacemaker; Z79.82 Long term (current) use of aspirin; Z79.899 Other long term (current) drug therapy; L72.3 Sebaceous cyst; F03.90 Unspecified dementia, unspecified severity, without behavioral disturbance, psychotic disturbance, mood disturbance, and anxiety; Z88.0 Allergy status to penicillin
CPT/HCPCS: 36415; 71260-TC; 80048-TC; 80061-TC; 80202-TC; 83735-TC; 84100-TC; 85025-TC; 87070-TC; 87075-TC; 87081-TC; 97116-TC; 97530-TC; A6253; G0378; J1100; J2060; J2185; J2405; J2704; J3370; J3490; J7030; J7050; J7060; Q9967

== ENCOUNTER 2021-07-21 21:30 | Inpatient (IN) | payer MEDICARE ==
[~2021-07-21] VITALS: Ht 172.7 cm; Wt 69.4 kg
[~2021-07-21 21:30] MED LIST changes: +ACET-868 PO; +ALLA266C2 TP; +ASPI-1420 PO; -ASPI-1498 PO; +CLON0.5T4 PO; +LORA-259 PO; +MAG30ORA PO; +MAGN400O6 PO; +TEMA7.5C12 PO
--- NOTE | 2021-07-21 21:37 | NUR ---
BABITA S/P UNWITNESSED FALL AT [facility]. DENIES ANY PAIN HOWEVER LACERATION TO HEAD NOTED +BLOOD THINNERS. PT BASELINE MENTAL STATUS AXOx1. PLACED INTO A GOWN AND MONITOR ALL VSS.
[2021-07-21 23:06] LABS: BASOPHILS # (AUTO) 0.1 K/uL (0.0-0.2); BASOPHILS % (AUTO) 0.6 % (0.0-2.0); EOSINOPHILS % (AUTO) 0.3 % (0.0-6.0); HEMATOCRIT 40 % (39-51); LYMPHOCYTES % (AUTO) 10.6 % (20.0-44.0); MEAN CORPUSCULAR HGB CONC 33 g/dl (31.0-36.0); MEAN CORPUSCULAR VOLUME 86 fL (80-96); MONOCYTES % (AUTO) 10.1 % (2.0-12.0); NEUTROPHILS # (AUTO) 7.7 K/uL (1.8-8.9); NEUTROPHILS % (AUTO) 78.4 % (43.0-81.0); PLATELET COUNT (AUTO) 298 K/uL (150-450); RED BLOOD CELL COUNT(AUTO) 4.64 MIL/uL (4.5-6.0); WHITE BLOOD COUNT (AUTO) 9.8 K/uL (4.3-11.0)
[2021-07-21 23:25] LABS: CALCIUM, SERUM 8.5 mg/dL (8.5-10.1); CREATININE 1.2 mg/dL (0.6-1.3); POTASSIUM 3.8 mmol/L (3.5-5.1)
[2021-07-21] MEDS ORDERED: hydrALAZINE HCL IV 20 MG VIAL ONE (23:28)
[2021-07-21 23:30] LABS: ALBUMIN 2.7 g/dL (3.4-5.0); BILIRUBIN,DIRECT 0.8 mg/dL (0.0-0.2); BILIRUBIN,TOTAL 1.5 mg/dL (0.2-1.0)
[2021-07-21] MEDS ORDERED: hydrALAZINE HCL IV 20 MG VIAL IV ONE (23:30)
[2021-07-22] MEDS ORDERED: ONDANSETRON HCL/PF 4 MG/2 ML VIAL IVP PRN ×2 (00:30→03:15)
[2021-07-22] MEDS ORDERED: ACETAMINOPHEN 325 MG TABLET PO PRN ×3 (00:30→14:30)
[2021-07-22] MEDS ORDERED: MAG HYDROX/AL HYDROX/SIMETH 30 ML UDC PO PRN ×3 (00:30→14:30)
[2021-07-22] MEDS ORDERED: Z GUARD REMEDY 2 OZ OINT TP PRN ×2 (00:30→03:15)
[2021-07-22] MEDS ORDERED: ENOXAPARIN SODIUM 30 MG/0.3 ML DISP.SYRIN SQ SCH (00:30)
[2021-07-22] MEDS ORDERED: MAGNESIUM HYDROXIDE 30 ML UDC PO PRN ×3 (00:30→14:30)
[2021-07-22 00:53] LABS: BILIRUBIN,URINE MODERATE (NEGATIVE); COLOR,URINE DARK YELLOW (YELLOW); LEUKOCYTE ESTERASE ,URINE NEGATIVE (NEGATIVE); NITRITE, URINE NEGATIVE (NEGATIVE); PROTEIN,URINE 100 mg/dl (NEGATIVE); UGLUCOSE NEGATIVE (NEGATIVE)
[2021-07-22 01:55] LABS: BACTERIA,URINE Few /HPF (None Seen); RBC,URINE 21-50 /HPF (0-2); SQUAMOUS EPITHELIAL CELL,UR Few /HPF (None Seen); WBC,URINE 0-2 /HPF (0-3)
--- NOTE | 2021-07-22 02:04 | NUR ---
REPORT GIVEN TO VIC
--- NOTE | 2021-07-22 02:55 | NUR ---
RECEIVED PT FROM ER, AWAKE DEMENTED ONLY KNOW HIS SURNAME BUT TELLING DIFFERENT NAME, FOR THE PLACE HE KNOW HE IS ON [place], PT ON ROOM AIR NO RESPIRATORY DISTRESS NOTED, WHILE TRANSFERRING PT FORM EDSON TO BED HE TRY TO KICK THE STENCIL SPRAYER AND THE ER NURSE, PT IS VERY COMBATIVE BUT VERY SWEET TALKER, SECURE ORDER FOR BILATERAL WRIST SOFT RESTRAINTS FOR THIS PT BECAUSE HE ALSO TRYING TO GET OUT ON BED AND REMOVED HIS IV LINE ON RIGHT WRIST # 18 PATENT AND FLUSHED, PT HAVE RCHEST WALL PACEMAKER, HOOKED TO TELE MONITOR WITH READING VPACING ON 60'S, DIAPER WAS CHANGES WITH WET DIAPER NO BM, DROPLET ISOLATION INITIATED TO R/O COVID 19, BED ON LOWEST POSITION AND LOCKED SIDE RAILS UP X2 CALL LIGHT WITHIN REACH WILL CONT TO MONITOR
--- NOTE | 2021-07-22 02:58 | NUR ---
PT TRANSFERRED TO ROOM 103 ON FLAKE CUTTER OPERATOR PER [facility] WITHOUT INCIDENT. VSS AT TIME OF TRANSFER.
[2021-07-22 04:00] VITALS: BP 158/95
[2021-07-22] MEDS: ENOXAPARIN SODIUM 40 MG/0.4 ML DISP.SYRIN SQ SCH (05:12)
[2021-07-22] MEDS ORDERED: PANTOPRAZOLE 40 MG TABLET.DR PO SCH (07:30)
--- NOTE | 2021-07-22 07:40 | NUR ---
AGRICULTURAL CROP FARM MANAGER OPENING NOTES RECEIVED PT AWAKE IN BED ON SOFT WRIST RESTRAINTS WITH NO S/SX OF RESPIRATORY DISTRESS. PT IS ON RA WITH A R WRIST IV ACCESS 20G SL, FLUSHED, PATENT WITH DRESSING IN TACT. PT IS ON SOFT WRIST RESTRAINTS, SKIN AND CIRCULATION CHECK PERFORMED. SAFETY MEASURES IN PLACE WITH BED IN LOWEST LOCKED POSITION, CALL LIGHT WITHIN REACH, SIDE RAILS UP X3 AND BED ALARM ON.
[2021-07-22] MEDS: PANTOPRAZOLE 40 MG TABLET.DR PO SCH (07:43)
[2021-07-22 08:00] VITALS: BP 156/70
[2021-07-22] MEDS ORDERED: SULF1TAB48 PO (08:16)
--- NOTE | 2021-07-22 10:56 | NUR ---
WOUND CARE CONSULT: REVIEWED CHART, NURSING DOCUMENTATION AND PHOTOS WHICH INDICATE SPOTS TO BACK (UNKNOWN ETIOLOGY), LEFT BACK WOUND WITH PACKING, SOME DRY ABRASIONS TO HEAD AND LOWER EXTREMITY, ALL PRESENT ON ADMISSION. DEFER TO PMD FOR RASH/SPOTS ON BACK. DR PATEL NOTIFIED OF SURGICAL CONSULT FOR LEFT BACK WOUND. RECOMMENDATIONS MADE FOR SKIN PROTECTION AND WOUND CARE. DISCUSSED WITH NURSING STAFF. MD IN AGREEMENT WITH PLAN OF CARE.
[2021-07-22 12:00] VITALS: BP 165/86
[2021-07-22] MEDS ORDERED: TEMAZEPAM 7.5 MG CAPSULE PO PRN (14:30)
--- NOTE | 2021-07-22 15:02 | NUR ---
PALLIATIVE CARE COORDINATOR NOTES PERFORMED PATIENT CARE WITH THE KEELER POLYGRAPH OPERATOR. CHANGED LINEN TO KEEP PT CLEAN AND DRY, CHANGED DRESSING FOR ABCESS NEAR THE LEFT SCAPULA. REPOSITIONED THE PT TO PREVENT SKIN BREAKDOWN. SKIN AND CIRCULATION CHECKS PERFORMED. SAFETY MEASURES IN PLACE WITH BED IN LOW LOCKED POSITION, CALL LIGHT WITHIN REACH, SOFT WRIST RESTRAINTS IN PLACE AND SIDE RAILS UP X3.
[2021-07-22 16:00] VITALS: BP 191/96
[2021-07-22] MEDS: CARVEDILOL 6.25 MG TABLET PO SCH (16:30)
[2021-07-22] MEDS ORDERED: LOSARTAN POTASSIUM 25 MG TABLET PO SCH (17:00)
[2021-07-22] MEDS: hydrALAZINE HCL IV 20 MG VIAL IV PRN (18:05)
--- NOTE | 2021-07-22 18:40 | NUR ---
ENGLISH LANGUAGE LEARNER TEACHER CLOSING NOTES PT RESTING COMFORTABLY IN SEMI-FOWLERS POSITION ON RA WITH NO S/SX OF RESPIRATORY DISTRESS. REMOVED PT SOFT WRIST RESTRAINTS, PT NOT PULLING ON LINES OR RISK FOR INJURY AT THIS TIME. PT HAS A R WRIST 20G S. SAFETY MEASURES IN PLACE WITH BED IN LOWEST LOCKED POSITION, CALL LIGHT WITHIN REACH, SIDE RAILS UP X3 AND BED ALARM ON.L
[2021-07-22 20:00] VITALS: BP 139/69
[2021-07-22] MEDS: clonazePAM 0.5 MG TABLET PO SCH (22:28)
[2021-07-23] VITALS (7 sets, daily range): BP systolic 131–171; BP diastolic 60–90
--- NOTE | 2021-07-23 02:11 | NUR ---
RN NOTE PATIENT NOTED WITH PULLED OUT RIGHT WRIST 20G PERIPHERAL IV. IV CANNULA STRAIGHT, INTACT. PRESSURE APPLIED AT SITE. REINSERTED 22G PERIPHERAL IV ON RIGHT FOREARM, PATENT WITH GOOD BLOOD RETURN.
[2021-07-23] MEDS: hydrALAZINE HCL IV 20 MG VIAL IV PRN ×2 (05:18→21:03)
--- NOTE | 2021-07-23 05:22 | NUR ---
RN NOTE PATIENT NOTED WITH BLOOD PRESSURE OF 166/72, HR OF 60 BPM. PATIENT DENIES HEADACHE, DENIES BLURRY VISION. HOB ELEVATED. ADMINISTERED HYDRALAZINE 10MG VIA IVP PER MD ORDER. NO INFILTRATION NOTED. WILL CONTINUE TO MONITOR.
--- NOTE | 2021-07-23 05:41 | NUR ---
RN NOTE BLOOD PRESSURE NOW AT 144/81. HR 62 BPM. DENIES HEADACHE, DENIES BLURRY VISION. HOB ELEVATED. CALL LIGHT WITHIN REACH.
--- NOTE | 2021-07-23 07:01 | NUR ---
RN NOTE NO SIGNIFICANT CHANGES. PATIENT REMAINS STABLE AT THIS TIME. NO CHANGES IN MENTATION. BREATHING EVEN AND UNLABORED. NO EPISODE OF SOB. TOLERATED ROOM AIR. STILL ON BILATERAL SOFT WRIST RESTRAINTS. CAPILLARY REFILL WNL BILATERALLY. PROVIDED FLUIDS FOR ADEQUATE HYDRATION. KEPT CLEAN AND DRY. BED LOW, IN LOCKED POSITION, CALL LIGHT WITHIN REACH.
[2021-07-23 07:53] LABS: BASOPHILS % (AUTO) 0.5 % (0.0-2.0); EOSINOPHILS % (AUTO) 0.4 % (0.0-6.0); HEMATOCRIT 42 % (39-51); HEMOGLOBIN 13.9 g/dL (13.5-17.5); LYMPHOCYTES % (AUTO) 10.7 % (20.0-44.0); MEAN CORPUSCULAR HGB CONC 33 g/dl (31.0-36.0); MEAN CORPUSCULAR VOLUME 86 fL (80-96); MONOCYTES # (AUTO) 0.8 K/uL (0.1-1.30); MONOCYTES % (AUTO) 9.4 % (2.0-12.0); PLATELET COUNT (AUTO) 314 K/uL (150-450); RED BLOOD CELL COUNT(AUTO) 4.91 MIL/uL (4.5-6.0); WHITE BLOOD COUNT (AUTO) 8.9 K/uL (4.3-11.0)
--- NOTE | 2021-07-23 08:00 | NUR ---
RN MORNING NOTE PT RECEIVED ASLEEP IN BED WITH HOB SEMI FOWLERS. PT IS ON RA SAT 96% WITH NO SIGNS OF LABORED BREATHING OR RESPIRATORY DISTRESS. PT IS AOX1. PT HAS PACEMAKER UPPER L SIDE AND V-PACING AT 60BPM. PT IS IN SOFT WRIST RESTRAINTS AND IS ON CARDIAC LOW FAT DIET. R FA 22G IV ACCESS. BED IS LOCKED IN LOWEST POSITION X2 GUARD RAILS UP, CALL VEGA IS WITHIN REACH, AND ALL HOSPITAL SAFETY MEASURES ARE IN PLACE. WILL CONTINUE TO MONITOR THIS SHIFT.
[2021-07-23] MEDS: clonazePAM 0.5 MG TABLET PO SCH ×2 (08:13→20:28)
[2021-07-23] MEDS: ENOXAPARIN SODIUM 40 MG/0.4 ML DISP.SYRIN SQ SCH (08:13)
--- NOTE | 2021-07-23 08:15 | NUR ---
RN MORNING NOTE PT REFUSED TO EAT BREAKFAST THIS MORNING.
[2021-07-23] MEDS: LOSARTAN POTASSIUM 25 MG TABLET PO SCH ×2 (08:24→16:31)
[2021-07-23] MEDS: PANTOPRAZOLE 40 MG TABLET.DR PO SCH (08:24)
[2021-07-23] MEDS: CARVEDILOL 6.25 MG TABLET PO SCH ×2 (08:24→16:30)
[2021-07-23] MEDS: ASPIRIN EC 81 MG TABLET.DR PO SCH (08:24)
[2021-07-23 09:04] LABS: CALCIUM, SERUM 8.4 mg/dL (8.5-10.1); CREATININE 1.3 mg/dL (0.6-1.3); MAGNESIUM 2.2 mg/dL (1.8-2.4); POTASSIUM 3.6 mmol/L (3.5-5.1)
[2021-07-23 09:39] LABS: PHOSPHORUS 3.2 mg/dL (2.5-4.9)
--- NOTE | 2021-07-23 18:25 | NUR ---
RN CLOSING NOTE PT LYING IN BED ASLEEP HOB SEMI FOWLERS. PT IS ON RA SAT 96% WITH NO SIGNS OF LABORED BREATHING OR RESPIRATORY DISTRESS. PT IS AOX1. PT REFUSED TO EAT TODAY. PT HAS PACEMAKER UPPER L SIDE AND V-PACING AT 60BPM. PT IS IN SOFT WRIST RESTRAINTS AND IS ON CARDIAC LOW FAT DIET. R FA 22G IV ACCESS. PLAN IS TO CONTINUE MONITOR TELE, ORTHOSTATICS, AND LOSARTAN WAS CHANGED TO PO DAILY, TODAY. BED IS LOCKED IN LOWEST POSITION X2 GUARD RAILS UP, CALL VEGA IS WITHIN REACH, AND ALL HOSPITAL SAFETY MEASURES ARE IN PLACE. WILL ENDORSE TO STREET VENDOR NURSE FOR ANA LUISA.
--- NOTE | 2021-07-23 19:30 | NUR ---
RN NOTE RECEIVED PATIENT IN BED, AWAKE, VERBALLY RESPONSIVE. AOX2. BREATHING EVEN AND UNLABORED. ON ROOM AIR AT THIS TIME. NO SOB NOTED. NO COUGH NOTED. SKIN WARM AND DRY. DENIES PAIN AT THIS TIME. NOTED WITH BILATERAL SOFT WRIST RESTRAINTS. CAPILLARY REFILLS WNL BILATERALLY. RELEASED. NO REDNESS ON WRISTS NOTED. PROVIDED FLUIDS FOR HYDRATION. HOB ELEVATED 35 DEGREES. RIGHT FOREARM 22G PERIPHERAL IV PATENT. NO BLEEDING NOTED. BED LOW, IN LOCKED POSITION. CALL LIGHT WITHIN REACH OF PATIENTS HAND.
--- NOTE | 2021-07-23 21:03 | NUR ---
RN NOTE PATIENT NOTED WITH BLOOD PRESSURE OF 171/90, HR OF 60 BPM. PATIENT DENIES HEADACHE, DENIES BLURRY VISION. HOB ELEVATED. ADMINISTERED HYDRALAZINE 10MG VIA IVP PER MD ORDER. NO INFILTRATION NOTED. WILL CONTINUE TO MONITOR.
--- NOTE | 2021-07-23 21:40 | NUR ---
RN NOTE BLOOD PRESSURE 141/60 WITH HEART RATE OF 60 BPM AT THIS TIME. HOB ELEVATED. WILL CONTINUE TO MONITOR. CALL LIGHT WITHIN REACH.
[2021-07-24] VITALS (7 sets, daily range): BP systolic 111–168; BP diastolic 48–78
--- NOTE | 2021-07-24 00:08 | NUR ---
RN NOTE PATIENT INSERTED WITH SHERYL MIDLINE 18G. PATENT. Addendum: 07/24/21 at 0013 by RADHA LAMB RN INSERTED DUE TO POOR VENOUS ACCESS. INSERTION COMPLETED BY KRISTIAN BORJA.
--- NOTE | 2021-07-24 07:30 | NUR ---
AIRCRAFT MAINTENANCE TECHNICIAN OPENING NOTE RECEIVED PATIENT AWAKE IN BED. AOX2. PT ON 2 LPM VIA NC, TOLERATING WELL. NO SOB OR S/S OF RESPIRATORY DISTRESS. PT ON EXTERNAL MORTGAGE ADVISOR V-PACING AT 63. NOTED WITH BILATERAL SOFT WRIST RESTRAINTS. CAPILLARY REFILLS WNL BILATERALLY. RELEASED. NO REDNESS ON WRISTS NOTED. RIGHT FOREARM 22G PERIPHERAL IV, INTACT AND PATENT. SAFETY PRECAUTIONS MAINTAINED, BED IN LOWEST LOCKED POSITION, SIDE RAILS UP X2, HOB ELEVATED, CALL LIGHT AND TABLE WITHIN REACH. WILL CONTINUE TO MONITOR.
[2021-07-24 07:31] LABS: BASOPHILS # (AUTO) 0.1 K/uL (0.0-0.2); BASOPHILS % (AUTO) 0.5 % (0.0-2.0); EOSINOPHILS % (AUTO) 0.5 % (0.0-6.0); HEMATOCRIT 42 % (39-51); HEMOGLOBIN 13.7 g/dL (13.5-17.5); LYMPHOCYTES # (AUTO) 0.9 K/uL (0.8-4.8); LYMPHOCYTES % (AUTO) 7.8 % (20.0-44.0); MEAN CORPUSCULAR HGB CONC 33 g/dl (31.0-36.0); MEAN CORPUSCULAR VOLUME 86 fL (80-96); MONOCYTES # (AUTO) 1.2 K/uL (0.1-1.30); MONOCYTES % (AUTO) 10.7 % (2.0-12.0); NEUTROPHILS % (AUTO) 80.5 % (43.0-81.0); PLATELET COUNT (AUTO) 342 K/uL (150-450); RED BLOOD CELL COUNT(AUTO) 4.91 MIL/uL (4.5-6.0); WHITE BLOOD COUNT (AUTO) 11.2 K/uL (4.3-11.0)
[2021-07-24 07:46] LABS: CALCIUM, SERUM 8.7 mg/dL (8.5-10.1); CARBON DIOXIDE 25 mmol/L (21-32); CHLORIDE 108 mmol/L (98-107); CREATININE 1.7 mg/dL (0.6-1.3); GLUCOSE 91 mg/dL (74-106); MAGNESIUM 2.4 mg/dL (1.8-2.4); PHOSPHORUS 3.4 mg/dL (2.5-4.9); POTASSIUM 4.5 mmol/L (3.5-5.1); SODIUM SERUM 146 mmol/L (136-145); UREA NITROGEN, BLOOD 23 mg/dL (7-18)
[2021-07-24] MEDS: PANTOPRAZOLE 40 MG TABLET.DR PO SCH (07:47)
[2021-07-24] MEDS: ASPIRIN EC 81 MG TABLET.DR PO SCH (09:20)
[2021-07-24] MEDS: clonazePAM 0.5 MG TABLET PO SCH ×2 (09:21→21:44)
[2021-07-24] MEDS: ENOXAPARIN SODIUM 40 MG/0.4 ML DISP.SYRIN SQ SCH (09:22)
[2021-07-24] MEDS: LOSARTAN POTASSIUM 25 MG TABLET PO SCH (09:23)
[2021-07-24] MEDS: CARVEDILOL 6.25 MG TABLET PO SCH ×2 (09:23→16:31)
--- NOTE | 2021-07-24 09:34 | NUR ---
RN YAZMIN MACIAS ([phone]), PT'S BROTHER, CALLED AND WAS UPDATED ON PT'S CONDITION AND PLAN.
[2021-07-24] MEDS: hydrALAZINE HCL 25 MG TABLET PO SCH ×2 (10:30→21:46)
--- NOTE | 2021-07-24 17:19 | NUR ---
RN NOTE CHECKED ORTHOSTATICS: SUPINE BP 168/68 AND HR 64, SITTING BP 164/58 AND HR 63, STANDING BP 138/59 AND HR 63. INFORMED CLEANER AND POLISHER BYRON AND RECEIVED ORDERS TO ADMINISTER 500 ML NS BOLUS. ORDERS RB, ENTERED, AND CARRIED OUT. WILL CONTINUE TO MONITOR.
[2021-07-24] MEDS ORDERED: IV NS 0.9% 500 ML BAG IV ONE (18:00)
--- NOTE | 2021-07-24 18:49 | NUR ---
FIELD LIABILITY GENERALIST CLOSING NOTE PATIENT AWAKE IN BED. AOX2. PT ON 2 LPM VIA NC, TOLERATING WELL. NO SOB OR S/S OF RESPIRATORY DISTRESS. PT ON EXTERNAL MARKETING ASSISTANT MANAGER V-PACING AT 65. NOTED WITH BILATERAL SOFT WRIST RESTRAINTS. CAPILLARY REFILLS WNL BILATERALLY. RELEASED. NO REDNESS ON WRISTS NOTED. RIGHT FOREARM 22G PERIPHERAL IV, INTACT AND PATENT. ALL NEEDS MET AT THIS TIME. SAFETY PRECAUTIONS MAINTAINED AT ALL TIMES. BED IN LOWEST LOCKED POSITION, SIDE RAILS UP X2, HOB ELEVATED, CALL LIGHT AND TABLE WITHIN REACH. WILL ENDORSE TO ONCOMING NURSE FOR ANA LUISA.
[2021-07-25] VITALS: BP_SYST 124; BP_SYST 148; BP_DIAS 67; BP_DIAS 71
[2021-07-25 04:00] VITALS: BP 177/84
[2021-07-25] MEDS: hydrALAZINE HCL 25 MG TABLET PO SCH ×3 (05:07→21:00)
--- NOTE | 2021-07-25 06:19 | NUR ---
RN notes Resting comfortably in bed with no distress noted. Breathing even and unlabored. On 2lpm O2 via nasal cannula, tolerating well. Bilateral wrist restraints in place, and released every two hours for hygiene, repositioning and circulation. No physical manifestation of pain or discomfort. Patient has dementia, Alert with confusion. Able to communicate and verbally ask for needs. No significant change of condition. Kept clean and dry. Will endorse to next shift for continuity of care.
[2021-07-25 06:30] LABS: BASOPHILS % (AUTO) 0.4 % (0.0-2.0); EOSINOPHILS % (AUTO) 0.6 % (0.0-6.0); HEMATOCRIT 41 % (39-51); LYMPHOCYTES # (AUTO) 0.9 K/uL (0.8-4.8); LYMPHOCYTES % (AUTO) 7.9 % (20.0-44.0); MEAN CORPUSCULAR HGB CONC 32 g/dl (31.0-36.0); MEAN CORPUSCULAR VOLUME 87 fL (80-96); MONOCYTES # (AUTO) 0.9 K/uL (0.1-1.30); MONOCYTES % (AUTO) 8.4 % (2.0-12.0); NEUTROPHILS # (AUTO) 9.1 K/uL (1.8-8.9); NEUTROPHILS % (AUTO) 82.7 % (43.0-81.0); PLATELET COUNT (AUTO) 316 K/uL (150-450)
[2021-07-25 06:47] LABS: ALANINE AMINOTRANSFERASE 21 U/L (12-78); ALBUMIN 2.7 g/dL (3.4-5.0); ALKALINE PHOSPHATASE 86 U/L (46-116); ASPARTATE AMINOTRANSFERASE 23 U/L (15-37); BILIRUBIN,TOTAL 1.2 mg/dL (0.2-1.0); CALCIUM, SERUM 8.2 mg/dL (8.5-10.1); CARBON DIOXIDE 21 mmol/L (21-32); CHLORIDE 107 mmol/L (98-107); CREATININE 1.7 mg/dL (0.6-1.3); GLUCOSE 87 mg/dL (74-106); MAGNESIUM 2.2 mg/dL (1.8-2.4); PHOSPHORUS 3.7 mg/dL (2.5-4.9); POTASSIUM 3.7 mmol/L (3.5-5.1); SODIUM SERUM 142 mmol/L (136-145); TOTAL PROTEIN, SERUM 6.7 g/dL (6.4-8.2); UREA NITROGEN, BLOOD 24 mg/dL (7-18)
--- NOTE | 2021-07-25 07:30 | NUR ---
REPORT PROGRAMMER AM NOTES PT IN BEDS, ALERT ORIENTED X 1, ON 2 LITERS O2 NASAL CANULA, SATTING 96%, NO SOB, RESPIRATION UNLABORED, NO SIGNS OF PAIN/DISCOMFORT, NO GRIMACINGS, V PACING HR 81 ON MONITOR. SEE NURSING FLOWSHEET FOR SKIN ISSUES, CARDIAC DIET, TOTAL ASSIST. WITH SHERYL MIDLINE 18G AND 22G ON RFA, BOTH FLUSHES WELL, BOTH SITE CLEAR, CDI DRESSINGS. ON BILATERAL SOFT WRIST RESTRAINT, RELEASED AND CHECKED FOR CIRCULATION, GOOD PULSE, THEN WILL CHECK Q 2 HOURS. USES DIAPERS, POC DISCUSSED, UNABLE TO FOLLOW/UNDERSTAND. WILL PERFORM PRESCRIBED WOUND TREATMENT IN A WHILE. BED LOW LOCKED, SR UP X 2, CALL LIGHT WITHIN REACH, WILL CONT TO MONITOR.
[2021-07-25 07:42] LABS: CREATINE KINASE, TOTAL 177 U/L (39-308)
[2021-07-25 08:00] VITALS: BP 168/81
[2021-07-25] MEDS: PANTOPRAZOLE 40 MG TABLET.DR PO SCH (08:14)
[2021-07-25] MEDS: ASPIRIN EC 81 MG TABLET.DR PO SCH (08:14)
[2021-07-25] MEDS: CARVEDILOL 6.25 MG TABLET PO SCH (08:15)
[2021-07-25] MEDS: clonazePAM 0.5 MG TABLET PO SCH ×2 (08:15→21:57)
[2021-07-25] MEDS: ENOXAPARIN SODIUM 40 MG/0.4 ML DISP.SYRIN SQ SCH (08:17)
--- NOTE | 2021-07-25 09:30 | NUR ---
RN NOTES DUE MEDS GIVEN
--- NOTE | 2021-07-25 09:40 | NUR ---
RN NOTES DORA MATTHEWS CARRIER WASHER AT BEDSIDE. ORDER FOR PSYCH CONSULT FACESHEET FAXED TO [facility] [employer]OTECTION INSPECTOR
[2021-07-25] MEDS: ISOSORBIDE DINITRATE (20MG) 20 MG TABLET PO SCH ×2 (09:47→17:33)
[2021-07-25 12:00] VITALS: BP 141/69
--- NOTE | 2021-07-25 12:36 | NUR ---
RN NOTES DORA MATTHEWS ORTHO NURSE NOTIFIED ABOUT PT REFUSING TO EAT AND SPITS EVERYTHING SINCE THIS MORNING BUT TAKES HIS MEDICATIONS. CONDOM CATH IN PLACE, NO OUTPUT. PSYCH CONSULT IN PLACE. PATIENT MENTIONED ' ASK THE FAMILY WHAT FAMILY WANTS'. NNO RECEIVED.
[2021-07-25] MEDS ORDERED: QUETIAPINE FUMARATE 25 MG TABLET PO PRN (15:00)
[2021-07-25 16:00] VITALS: BP 142/64
[2021-07-25] MEDS ORDERED: IV D5/ 0.9% NACL 1,000 ML IV PRN (16:00)
[2021-07-25] MEDS: CARVEDILOL 12.5 MG TABLET PO SCH (17:32)
[2021-07-25] MEDS: QUETIAPINE FUMARATE 25 MG TABLET PO SCH (17:33)
--- NOTE | 2021-07-25 18:33 | NUR ---
PHARMACIST CRITICAL CARE CLOSING NOTES PT IN BED, RESTING, PM CARE AND WOUND TREATMENT DONE. ALERT ORIENTED X 1, ON 2 LITERS O2 NASAL CANULA, SATTING 96%, NO SOB, RESPIRATION UNLABORED, NO SIGNS OF PAIN/DISCOMFORT, NO GRIMACINGS, V PACING HR 8Os ON MONITOR. CARDIAC DIET, TOTAL ASSIST, VERY POOR INTAKE, md AWARE. SHERYL MIDLINE 18G AND 22G ON RFA, NOW WITH D5NS 50 ML/HR STARTED. BOTH FLUSHES WELL, BOTH SITE CLEAR, CDI DRESSINGS. ON BILATERAL SOFT WRIST RESTRAINT, RELEASED AND CHECKED FOR CIRCULATION, GOOD PULSE, CHECKED Q 2 HOURS. USES DIAPERS, ALL NEEDS MET. NO OTHER SIGNIFICANT CHANGE IN CONDITION. BED LOW LOCKED, SR UP X 2, CALL LIGHT WITHIN REACH, WILL ENDORSE TO NEXT SHIFT FOR ANA LUISA. FOR POSSIBLE DISCHARGE ONCE CLEARED BY NEPHRO AND CARDIO.
[2021-07-25 20:00] VITALS: BP 105/48
--- NOTE | 2021-07-25 20:22 | NUR ---
ASSEMBLY HAND OPENING NOTES: RECEIVED PATIENT FROM DAY SHIFT, PATIENT V PACING AT 60S BPM, BED ALARM IS ON, PATIENT ASLEEP IN BED, BED AT LOWEST POSITION, SIDE RAILS UP X2, CALL LIGHT WITHIN REACH, REPORTS NO DISTRESS, NO SOB, PT A/O X1, ON RESTRAINTS, V/S WNL, ON RA, SATURATION 95%, WILL CONTINUE TO MONITOR.
[2021-07-25] MEDS ORDERED: MIRTAZAPINE 15 MG TABLET PO SCH (22:00)
[2021-07-25 23:48] LABS: BILIRUBIN,URINE SMALL (NEGATIVE); COLOR,URINE DARK YELLOW (YELLOW); LEUKOCYTE ESTERASE ,URINE NEGATIVE (NEGATIVE); NITRITE, URINE NEGATIVE (NEGATIVE); PH,URINE 5.5 (5.0-8.0); PROTEIN,URINE 30 mg/dl (NEGATIVE); UGLUCOSE NEGATIVE (NEGATIVE)
[2021-07-26] VITALS: BP 113/47
[2021-07-26 00:39] LABS: CREATININE, URINE 141.4 MG/DL (30.0-125.0); URINE TOTAL PROTEIN 66.6 mg/dL (0-11.9)
[2021-07-26 01:45] LABS: RBC,URINE 21-50 /HPF (0-2)
[2021-07-26 01:46] LABS: BACTERIA,URINE Many /HPF (None Seen); SQUAMOUS EPITHELIAL CELL,UR Few /HPF (None Seen)
[2021-07-26 02:53] LABS: EOSINOPHIL,URINE None Seen
[2021-07-26 04:00] VITALS: BP 137/64
[2021-07-26] MEDS: hydrALAZINE HCL 25 MG TABLET PO SCH ×2 (05:07→12:31)
--- NOTE | 2021-07-26 06:42 | NUR ---
RN CLOSING NOTES: PATIENT STABLE, SLEEPING IN BED, V/S WNL, BED AT LOWEST POSITION, BRAKES LOCKED, CALL LIGHT WITHIN REACH, SIDE RAILS UP X2, WILL CONTINUE TO MONITOR AND ENDORSE TO DAY SHIFT NURSE. SHERYL MIDLINE #18 AND FOREARM #22 PATENT AND INTACT.
[2021-07-26 06:50] LABS: BASOPHILS % (AUTO) 0.5 % (0.0-2.0); EOSINOPHILS % (AUTO) 0.6 % (0.0-6.0); HEMATOCRIT 37 % (39-51); HEMOGLOBIN 12.5 g/dL (13.5-17.5); LYMPHOCYTES # (AUTO) 0.8 K/uL (0.8-4.8); LYMPHOCYTES % (AUTO) 9.1 % (20.0-44.0); MEAN CORPUSCULAR HGB CONC 34 g/dl (31.0-36.0); MEAN CORPUSCULAR VOLUME 85 fL (80-96); MONOCYTES # (AUTO) 0.8 K/uL (0.1-1.30); MONOCYTES % (AUTO) 9.3 % (2.0-12.0); NEUTROPHILS % (AUTO) 80.5 % (43.0-81.0); PLATELET COUNT (AUTO) 289 K/uL (150-450); RED BLOOD CELL COUNT(AUTO) 4.38 MIL/uL (4.5-6.0); WHITE BLOOD COUNT (AUTO) 8.7 K/uL (4.3-11.0)
--- NOTE | 2021-07-26 07:30 | NUR ---
MS RN OPENING NOTES RECEIVED PATIENT RESTING ON BED AND A/O X1. ON O2 AT 2LPM VIA NASAL CANNULA SATURATING WELL. NO SOB NOTED. NOT IN DISTRESS. WITH NO COMPLAINTS OF PAIN OR DISCOMFORT AT THIS TIME. WITH IV ACCESS AT RIGHT UPPER ARM MIDLINE G18 WITH D5NS AT 50ML/HR INFUSING WELL. IN LINE IS PATENT AND INTACT. SAFETY MEASURES IN PLACE. CALL LIGHT WITHIN REACH. BED ON LOWEST AND LOCKED POSITION, SIDE RAILS UP X2. WILL CONTINUE TO MONITOR.
[2021-07-26 07:43] LABS: CALCIUM, SERUM 7.9 mg/dL (8.5-10.1); CARBON DIOXIDE 23 mmol/L (21-32); CHLORIDE 109 mmol/L (98-107); CREATININE 1.7 mg/dL (0.6-1.3); GLUCOSE 155 mg/dL (74-106); MAGNESIUM 2.3 mg/dL (1.8-2.4); PHOSPHORUS 3.7 mg/dL (2.5-4.9); POTASSIUM 4.2 mmol/L (3.5-5.1); SODIUM SERUM 143 mmol/L (136-145); UREA NITROGEN, BLOOD 23 mg/dL (7-18)
[2021-07-26 08:00] VITALS: BP 141/68
[2021-07-26] MEDS: ISOSORBIDE DINITRATE (20MG) 20 MG TABLET PO SCH (09:02)
[2021-07-26] MEDS: ASPIRIN EC 81 MG TABLET.DR PO SCH (09:02)
[2021-07-26] MEDS: QUETIAPINE FUMARATE 25 MG TABLET PO SCH (09:02)
[2021-07-26] MEDS: PANTOPRAZOLE 40 MG TABLET.DR PO SCH (09:02)
[2021-07-26] MEDS: CARVEDILOL 12.5 MG TABLET PO SCH (09:03)
[2021-07-26] MEDS: clonazePAM 0.5 MG TABLET PO SCH (09:06)
[2021-07-26] MEDS: ENOXAPARIN SODIUM 40 MG/0.4 ML DISP.SYRIN SQ SCH (09:08)
[2021-07-26] MEDS ORDERED: ISOS20TA8 PO (10:08)
[2021-07-26] MEDS ORDERED: HYDR-4076 PO (10:08)
[2021-07-26] MEDS ORDERED: Quetiapine Fumarate PO ×2 (10:08)
[2021-07-26] MEDS ORDERED: MIRT-121 PO (10:08)
[2021-07-26 12:00] VITALS: BP 141/68
[2021-07-26 12:31] VITALS: BP 107/54
--- NOTE | 2021-07-26 14:35 | NUR ---
MS MOTORCYCLE POLICE OFFICER NOTES PATIENT WAS SEEN BY DR. MATTHEWS AND ORDERED FOR DISCHARGE TO SNF AT [facility]. GIVEN REPORT TO NURSE BHAGAT OF THE FACILITY. DISCHARGE INSTRUCTIONS AND HOME MEDICATIONS INSTRUCTIONS GIVEN. INSTRUCTED TO FOLLOW-UP WITH PRIMARY CARE PHYSICIAN AND ONCOLOGY SCHEDULED SCHEDULED FOR LUNG NODULE. IV LINE AND NAME WRIST BAND REMOVED. PATIENT WAS PICKED UP BY AMBULANCE PERSONNEL IN STABLE CONDITION. MD AND CHARGE NURSE ARE AWARE OF THE DISCHARGE.
[2021-07-26 15:06] LABS: *SPE A/G RATIO 0.7 (0.7-1.7); *SPE ALPHA-1-GLOBULIN 0.3 g/dL (0.0-0.4); *SPE ALPHA-2-GLOBULIN 0.6 g/dL (0.4-1.0); *SPE BETA GLOBULIN 0.9 g/dL (0.7-1.3); *SPE M-SPIKE Not Observed g/dL (Not Observed)
== END 2021-07-26 14:28 | DRG 640 ==
LOC: ER 21:38 → TELE1 07-22 04:51 → MEDSG1 07-26 07:05
PROVIDERS: ADMIT Registered Nurse; ATTEND Registered Nurse
PROC: 05H933Z Insertion of Infusion Device into Right Brachial Vein, Percutaneous Approach (ICD-10-PCS; principal; 2021-07-24)
DX: E86.0 Dehydration (principal); N17.0 Acute kidney failure with tubular necrosis; E87.0 Hyperosmolality and hypernatremia; I16.0 Hypertensive urgency; F03.90 Unspecified dementia, unspecified severity, without behavioral disturbance, psychotic disturbance, mood disturbance, and anxiety; I10 Essential (primary) hypertension; Z85.46 Personal history of malignant neoplasm of prostate; Y92.129 Unspecified place in nursing home as the place of occurrence of the external cause; I48.91 Unspecified atrial fibrillation; Z20.822 Contact with and (suspected) exposure to COVID-19; Z88.0 Allergy status to penicillin; Z79.82 Long term (current) use of aspirin; Z79.899 Other long term (current) drug therapy; Z86.73 Personal history of transient ischemic attack (TIA), and cerebral infarction without residual deficits; R91.1 Solitary pulmonary nodule; I25.10 Atherosclerotic heart disease of native coronary artery without angina pectoris; S20.412A Abrasion of left back wall of thorax, initial encounter; D72.829 Elevated white blood cell count, unspecified; F32.9 Major depressive disorder, single episode, unspecified; S00.01XA Abrasion of scalp, initial encounter; W18.30XA Fall on same level, unspecified, initial encounter
CPT/HCPCS: 36415; 70450-TC; 71045-TC; 72125-TC; 80048-TC; 80053-TC; 80076-TC; 81001; 82550-TC; 82570-TC; 82962-TC; 83735-TC; 83970; 84100-TC; 84155; 84155-TC; 84165; 84300-TC; 84484-TC; 85025-TC; 85730-TC; 87040-TC; 87081-TC; 87086-TC; 93307-TC; 93880-TC; 97116-TC; 97530-TC; A4349; A6253; A6403; A6407; C9803; G0378; J0360; J1650; J2405; J7040; J7042; U0003